=== PATIENT | male | born 1990 | race Two or more races ===

== ENCOUNTER 2019-08-24 09:54 | Emergency (ER) | payer MEDICAID ==
[~2019-08-24] VITALS: Ht 175.3 cm; Wt 85.0 kg
[2019-08-24 10:29] VITALS: BP 130/59
[2019-08-24] MEDS ORDERED: TETRACAINE 0.5% OPHTH DROPS 4ML RIGHTEYE ONE (11:45)
[2019-08-24] MEDS ORDERED: IBUPROFEN 600MG TABLET PO ONE (11:45)
[2019-08-24] MEDS ORDERED: FLUORESCEIN SODIUM 1MG/STRIP RIGHTEYE ONE (11:45)
== END 2019-08-24 12:57 | disposition home or self-care (01) ==
LOC: ER 09:54
DX: S00.11XA Contusion of right eyelid and periocular area, initial encounter (principal); J45.909 Unspecified asthma, uncomplicated; W22.8XXA Striking against or struck by other objects, initial encounter; Y93.89 Activity, other specified; Y92.9 Unspecified place or not applicable; Z88.3 Allergy status to other anti-infective agents
CPT/HCPCS: 99283